=== PATIENT | male | born 1960 | race Caucasian/White ===

== ENCOUNTER 2018-01-17 18:42 | Emergency (ER) | payer OTHER, MEDICARE ==
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
[2018-01-17] MEDS ORDERED: Sodium Chloride 0.9% 1000 ML 1,000 ML ONE (20:26)
[2018-01-17] MEDS ORDERED: Zofran 4 MG/2 ML VIAL ONE (20:26)
[2018-01-17] MEDS ORDERED: Nitrostat 0.4 MG (ED) SL ONE (20:26)
[2018-01-17 20:31] LABS: BASOPHIL % 0.2 % (0.0-0.4); Basophil (Absolute #) 0.01 (0-0.4); Eosinophil % 0.2 % (0.00-5.0); Eosinophil (Absolute #) 0.01 (0-0.5); Granulocyte Absolute (ANC) 2.64 (1.4-6.9); Granulocytes % 53.3 % (36.0-66.0); Hemoglobin 11.2 gm/dl (12.5-18.0); Lymphocyte (Absolute #) 1.78 (1.0-4.6); Mean Corpuscular Hemoglobin 27.5 pg (26-32); Mean Platelet Volume 11.3 fl (6-9.5); Monocyte (Absolute #) 0.51 (0.0-1.3); Monocytes % 10.3 % (0.0-12.0); Platelet Count 178 K/mm3 (150-450); Red Blood Count 4.07 M/mm3 (4.1-5.6); Red Cell Distribution Width 15.5 % (11.5-14.0)
[2018-01-17] MEDS: Nitrostat 0.4 MG (ED) SL ONE (20:42)
[2018-01-17] MEDS: Sodium Chloride 0.9% 1000 ML 1,000 ML IV STA (20:42)
[2018-01-17] MEDS: Zofran 4 MG/2 ML VIAL IV ONE (20:42)
[2018-01-17 21:04] LABS: ALBUMIN 3.4 g/dL (3.5-5.0); ALKALINE PHOSPHATASE 161 U/L (38-126); ANION GAP 9.6 MEQ/L (5-15); BLOOD UREA NITROGEN 10 mg/dL (9-20); CHLORIDE 105 mmol/L (98-107); Calcium 8.2 mg/dL (8.4-10.2); Carbon Dioxide 27 mmol/L (22-30); Creatinine 1 0.52 mg/dL (0.66-1.25); Glucose 93 mg/dL (74-106); NT PRO BNP 168 pg/mL (0-900); Potassium 3.9 mmol/L (3.5-5.1); SGOT/AST 48 U/L (17-59); SGPT/ALT 52 U/L (0-50); SODIUM 138 mmol/L (137-145); Total Protein 6.4 g/dL (6.3-8.2)
[2018-01-17 21:50] VITALS: BP 134/83; PULSE 76
[2018-01-17 22:05] VITALS: O2SAT 97
--- NOTE | 2018-01-18 09:26 | XRAY ---
Indication: Chest pain. Comparison: September 13, 2015. PA/lateral chest demonstrates minimal left base fibrosis/scarring. No focal infiltrate, consolidation, or large effusion. Heart is not enlarged. Bony thorax again demonstrates osteopenia, degenerative changes, and old right clavicle fracture with intact hardware. New finding for multiple old left rib fractures. Impression: Nonacute chest with chronic features.
== END 2018-01-17 22:22 | disposition home or self-care (01) ==
LOC: ED 18:42
DX: M54.2 Cervicalgia (principal); F41.9 Anxiety disorder, unspecified; R20.0 Anesthesia of skin; R11.0 Nausea; R06.02 Shortness of breath
CPT/HCPCS: 36000; 36415; 71046; 80053; 83880; 84484; 85025; 93005; 93041; 96360; 96374; 99284; J2405; A9270-GY

== ENCOUNTER 2018-01-22 16:33 | Emergency (ER) | payer OTHER, MEDICARE ==
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
[2018-01-22] MEDS ORDERED: MORPHINE SULFATE 10 MG/ML IV ONE (18:42)
[2018-01-22] MEDS ORDERED: Sodium Chloride 0.9% 1000 ML 1,000 ML IV STA (18:42)
[2018-01-22] MEDS ORDERED: Zofran 4 MG/2 ML VIAL IV ONE (18:42)
[2018-01-22] MEDS ORDERED: Sodium Chloride 0.9% 1000 ML 1,000 ML ONE (19:25)
[2018-01-22] MEDS ORDERED: MORPHINE SULFATE 10 MG/ML ONE (19:25)
[2018-01-22] MEDS ORDERED: Zofran 4 MG/2 ML VIAL ONE (19:25)
[2018-01-22 19:48] VITALS: BP 143/89; PULSE 86; O2SAT 95
--- NOTE | 2018-01-22 22:12 | XRAY ---
Indication: Pain following fall. Comparison: None Single AP pelvis demonstrates nondisplaced left intertrochanteric fracture. Elsewhere osteopenia, moderate bilateral superior acetabular spurring, mild lower lumbar degenerative spondylosis, and mild scattered vascular calcifications. Comment: Preliminary interpretation was made by [facility]. No critical discrepancy.
--- NOTE | 2018-01-22 22:12 | XRAY ---
Indication: Pain following fall. Comparison: None 2 views of the left hip demonstrates nondisplaced intertrochanteric fracture. Elsewhere osteopenia, moderate superior acetabular spurring, and mild scattered vascular calcifications. Comment: Preliminary interpretation was made by [facility]. No critical discrepancy.
== END 2018-01-22 19:42 | disposition short-term general hospital (02) ==
LOC: ED 16:33
DX: S72.142A Displaced intertrochanteric fracture of left femur, initial encounter for closed fracture (principal); W01.0XXA Fall on same level from slipping, tripping and stumbling without subsequent striking against object, initial encounter; Y93.79 Activity, other specified sports and athletics; Y92.148 Other place in prison as the place of occurrence of the external cause
CPT/HCPCS: 36000; 72170; 73502; 96360; 96374; 96375; 99285; J2270; J2405

== ENCOUNTER 2018-02-05 14:56 | Emergency (ER) | payer MEDICARE ==
[2018-02-05 15:04] VITALS: BP 175/104; PULSE 77; O2SAT 99
[2018-02-05] MEDS ORDERED: NORCO 5/325 MG PO ONE (15:44)
--- NOTE | 2018-02-05 15:52 | ERPHSYRPT ---
- History of Present Illness Time Seen by Provider: 02/05/18 15:46 Source: patient Exam Limitations: no limitations Patient Subjective Stated Complaint: pt in offeder in local half-way. has recent surgery on left hip last week. and today he was being lifted to bed and states he lnded on mattress on floor, now co pian to left hip.pt is to have toe bearing to left leg with a walker Triage Nursing Assessment: pt alert, resp easy, skin w/d/p. has bandage to left hip, no redenss or swelling Physician History: This is a 57-year-old white male with history of recent hip fracture and hip replacement. He arrives with complaint of pain in his left hip. Apparently fell and injured the left hip. Patient with recent ORIF of the left hip. Patient complains of pain in the left hip. Past medical history includes COPD, high blood pressure, RI, GERD, gastric bypass, umbilical hernia, RI with stents, left ankle fracture, right clavicle fracture, left upper extremity fracture. Past surgical history includes cardiac catheter cardiac stents orthopedic surgery, gastric bypass. Social history history of methamphetamine and marijuana use Timing/Duration: today Severity: moderate Associated Symptoms: No nausea, No vomiting, No abdominal pain, No shortness of breath, No heartburn, No diaphoresis, No cough, No chills, No chest pain, No fever, No headaches, No loss of appetite, No malaise, No rash, No syncope, No seizure, No weakness Allergies/Adverse Reactions: atorvastatin [From Lipitor] Allergy (Verified 02/05/18 15:04) gabapentin Allergy (Verified 02/05/18 15:04) Penicillins Allergy (Verified 02/05/18 15:04) Home Medications: Enoxaparin Sodium 75 mg BID 02/05/18 [History] Hydrocodone/Acetaminophen [Hydrocodone-Acetamin 10-325 mg] 1 ea DAILY 02/05/18 [ History] Hx Tetanus, Diphtheria Vaccination/Date Given: Yes Hx Influenza Vaccination/Date Given: No Hx Pneumococcal Vaccination/Date Given: No Immunizations Up to Date: Yes - Review of Systems Constitutional: No Fever, No Chills Eyes: No Symptoms Ears, Nose, & Throat: No Symptoms Respiratory: No Cough, No Dyspnea Cardiac: No Chest Pain, No Edema, No Syncope Abdominal/Gastrointestinal: No Abdominal Pain, No Nausea, No Vomiting, No Diarrhea Genitourinary Symptoms: No Dysuria Musculoskeletal: Other (Patient with pain in his left hip, had re he might want himcent surgery left hip) Skin: No Rash Neurological: No Dizziness, No Focal Weakness, No Sensory Changes Psychological: No Symptoms Endocrine: No Symptoms All Other Systems: Reviewed and Negative - Past Medical History Pertinent Past Medical History: Yes Neurological History: Stroke ENT History: No Pertinent History Cardiac History: Hypertension, Myocardial Infarction (RI) Respiratory History: COPD Endocrine Medical History: No Pertinent History Musculoskeletal History: Other GI Medical History: GERD History: No Pertinent History Psycho-Social History: No Pertinent History Male Reproductive Disorders: No Pertinent History Other Medical History: GASTRIC BYPASS 6 YEARS AGO, UMBILICAL HERNIA SX. RI W/ CARDIAC STENTS PLACED 8-10 YEARS AGO; R LL ANKLE FXS, R CLAVICLE FX AND L UE FX - Past Surgical History Past Surgical History: Yes Neuro Surgical History: No Pertinent History Cardiac: Cardiac Catheterization, Cardiac Stent Gastrointestinal: Other Musculoskeletal: Orthopedic Surgery Other Surgical History: gastric bypass - right shoulder replacement; colonoscopy with poyp removal - Social History Smoking Status: Current every day smoker Exposure to second hand smoke: Yes Drug Use: marijuana, methamphetamines Patient Lives Alone: No - Nursing Vital Signs Nursing Vital Signs: Initial Vital Signs Temperature 97.6 F 02/05/18 14:57 Pulse Rate 77 02/05/18 14:57 Respiratory Rate 16 02/05/18 14:57 Blood Pressure 175/104 02/05/18 14:57 O2 Sat by Pulse Oximetry 99 02/05/18 14:57 Pain Scale Pain Intensity 10 - Physical Exam General Appearance: moderate distress Eye Exam: PERRL/EOMI Ears, Nose, Throat Exam: normal ENT inspection, TMs normal, pharynx normal, moist mucous membranes Neck Exam: normal inspection, non-tender, supple, full range of motion Respiratory Exam: normal breath sounds, lungs clear, No respiratory distress Cardiovascular Exam: regular rate/rhythm, normal heart sounds, normal peripheral pulses Gastrointestinal/Abdomen Exam: soft, normal bowel sounds, No tenderness, No mass Back Exam: normal inspection, normal range of motion, No CVA tenderness, No vertebral tenderness Extremity Exam: other (Left hip tender with palpation, decreased range of motion left hip, olivia in place left hip, no drainage left hip) Neurologic Exam: alert, oriented x 3, cooperative, normal mood/affect, nml cerebellar function, nml station & gait, sensation nml, No motor deficits SpO2 Interpretation: normal (99%) SpO2: 99 Oxygen Delivery: Room Air - Course Nursing assessment & vital signs reviewed: Yes Ordered Tests: Active Orders 24 hr Category Date Time Status HIP UNI (2V) INCL PEL IF DONE Stat Exams 02/05/18 15:07 Taken Medication Summary Discontinued Medications Generic Name Dose Route Start Last Admin Trade Name Freq PRN Reason Stop Dose Admin Hydrocodone Bitart/Acetaminophen 1 tab 02/05/18 15:44 [place] 5/325 Mg PO 02/05/18 15:45 STAT ONE - Progress Progress: improved Progress Note: 02/05/18 15:52 57-year-old white male with recent hip fracture status post ORIF. Patient arrives with complaint of pain in his left hip apparently dropped onto his left hip. Patient apparently is incarcerated today. Patient feels like he cannot be accommodated at the half-way. Patient with x-ray of the left hip and pelvis which shows ORIF of the left hip hardware in place. Patient's wounds left hip Olivia are in place no drainage no erythema. Will have nurse contact she'll Cmdr. patient will need to have orders given to him by his orthopedist continued at the half-way. As far as physical activity and medications - Departure Referrals: HEIDI WHITE [Primary Care Provider] -
[2018-02-05] MEDS ORDERED: NORCO 5/325 MG ONE (15:59)
--- NOTE | 2018-02-05 20:53 | XRAY ---
Indication: Pain. Comparison: January 22, 2018. AP pelvis and 2 views of the left hip demonstrates new gamma nail, intramedullary todd, and distal screw fixating previous intertrochanteric fracture in good apposition/alignment. Cutaneous olivia attest to recent surgery. Stable osteopenia, acetabular spurring, and scattered vascular calcifications.
== END 2018-02-05 16:45 | disposition home or self-care (01) ==
LOC: ED 14:56
DX: M25.552 Pain in left hip (principal); Z96.642 Presence of left artificial hip joint; W17.89XA Other fall from one level to another, initial encounter; Y93.F2 Activity, caregiving, lifting; Y92.143 Cell of prison as the place of occurrence of the external cause
CPT/HCPCS: 73502; 99283; A9270-GY

== ENCOUNTER 2021-09-28 14:05 | Observation (INO) | payer MEDICARE ==
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
[2021-09-28 16:14] LABS: Crystals Unidentified 25-50 /HPF (NEGATIVE); Mucus MANY /HPF (NEGATIVE); RBC 0-2 /HPF (0-2)
[2021-09-28 16:17] LABS: Amphetamine,Urine POSITIVE (NEGATIVE); Barbiturate,Urine NEGATIVE (NEGATIVE); Benzodiazepine,Urine POSITIVE (NEGATIVE); Cocaine,Urine NEGATIVE (NEGATIVE); Methadone,Urine NEGATIVE (NEGATIVE); Opiate,Urine NEGATIVE (NEGATIVE); PCP,Urine NEGATIVE (NEGATIVE); THC,Urine POSITIVE (NEGATIVE)
[2021-09-28 16:18] LABS: Hematocrit 49.4 % (42-50); Hemoglobin 15.9 gm/dl (12.5-18.0); Mean Corpuscular Hgb Concent. 32.2 g/dl (32-36); Platelet Count 60 K/mm3 (150-450); Red Blood Count 5.88 M/mm3 (4.1-5.6); Red Cell Distribution Width 16.5 % (11.5-14.0); White Blood Count 2.5 K/mm3 (4.0-10.5)
[2021-09-28 16:31] LABS: Appearance CLOUDY (CLEAR); Bilirubin SMALL (NEGATIVE); Glucose NEGATIVE (NEGATIVE)
[2021-09-28 16:32] LABS: Dipstick done @ ? MAIN LAB; Ketones NEGATIVE (NEGATIVE); Nitrite NEGATIVE (NEGATIVE); Ph 5.5 (5-6); Protein,Urine Dip 30 (Negative); RBC SMALL Ery/ul (0-5); Specific Gravity >=1.030 (1.005-1.025); Urobilinogen 1 mg/dL (0-1)
[2021-09-28 16:33] LABS: ALBUMIN 3.6 g/dL (3.5-5.0); ALKALINE PHOSPHATASE 100 U/L (38-126); ANION GAP 10.9 MEQ/L (5-15); BLOOD UREA NITROGEN 11 mg/dL (9-20); CHLORIDE 100 mmol/L (98-107); Calcium 7.9 mg/dL (8.4-10.2); Carbon Dioxide 27 mmol/L (22-30); Creatinine 1 0.52 mg/dL (0.66-1.25); EST GLOMERULAR FILTRATION RATE > 60.0 ML/MIN; ETHYL ALCOHOL < 10 mg/dL (0-10); Glucose 105 mg/dL (74-106); Potassium 3.6 mmol/L (3.5-5.1); SGOT/AST 120 U/L (17-59); SGPT/ALT 50 U/L (0-50); SODIUM 134 mmol/L (137-145); Total Protein 6.9 g/dL (6.3-8.2)
[2021-09-28 16:37] LABS: Urine Cultured Indicated? YES
[2021-09-28] MEDS ORDERED: Sodium Chloride 0.9% 1000 ML 1,000 ML IV STA (16:54)
[2021-09-28] MEDS ORDERED: Sodium Chloride 0.9% 1000 ML 1,000 ML ONE (16:57)
[2021-09-28 17:02] LABS: INR 0.97 (0.8-3.0); PROTIME 11.4 SECONDS (9.4-12.5)
[2021-09-28] MEDS ORDERED: TORAdol 30 mg Injection IV ONE (18:04)
[2021-09-28] MEDS ORDERED: TORAdol 30 mg Injection ONE (18:04)
[2021-09-28 18:17] LABS: INFLUENZA A NEGATIVE (NEGATIVE); INFLUENZA B NEGATIVE (NEGATIVE); RESPIRATORY SYNCTIAL VIRUS NEGATIVE (Negative); SARS-CoV-2 Xpert Express NEGATIVE (NEGATIVE)
[2021-09-28] MEDS ORDERED: Hydromorphone 1 mg/ml Injection IV PRN (18:34)
[2021-09-28] MEDS ORDERED: ROCEPHIN 1 Gm-D5w 50 ml Bag** 1 G/50 ML IVPB IV ONE (18:35)
[2021-09-28 19:34] LABS: Lymphocytes 37 % (24-44); Monocyte 13 % (0.0-12.0); Total Cells Counted 100
[2021-09-28 19:35] LABS: ANISOCYTOSIS 1+; Platelet Estimate DECREASED (NORMAL)
[2021-09-28] MEDS: Sodium Chloride 0.9% 1000 ML 1,000 ML IV SCH (19:56)
--- NOTE | 2021-09-28 21:27 | XRAY ---
Indication: General malaise after finding multiple tics. Comparison: January 17, 2018. Portable chest hyperinflated and clear. Heart not enlarged with mildly tortuous descending aorta. Bony thorax intact with mild osteopenia, degenerative changes, old left rib fractures, old right clavicle fracture with fixation plate/screws, and tiny metallic radiopacities overlying right shoulder. Impression: Nonacute hyperinflated chest with chronic features.
[2021-09-29] MEDS: Sodium Chloride 0.9% 1000 ML 1,000 ML IV SCH (05:04)
[2021-09-29 05:31] LABS: Hemoglobin 12.9 gm/dl (12.5-18.0); Mean Cell Volume 83.3 fl (78-100); Mean Corpuscular Hemoglobin 26.9 pg (26-32); Mean Corpuscular Hgb Concent. 32.3 g/dl (32-36); Mean Platelet Volume 12.6 fl (7.5-11.0); Platelet Count 51 K/mm3 (150-450); Red Cell Distribution Width 15.9 % (11.5-14.0); White Blood Count 3.2 K/mm3 (4.0-10.5)
[2021-09-29 05:47] LABS: ALBUMIN 2.8 g/dL (3.5-5.0); ALKALINE PHOSPHATASE 72 U/L (38-126); ANION GAP 13.3 MEQ/L (5-15); BLOOD UREA NITROGEN 13 mg/dL (9-20); CHLORIDE 103 mmol/L (98-107); Calcium 6.9 mg/dL (8.4-10.2); Carbon Dioxide 22 mmol/L (22-30); Creatinine 1 0.53 mg/dL (0.66-1.25); EST GLOMERULAR FILTRATION RATE > 60.0 ML/MIN; Glucose 173 mg/dL (74-106); PREALBUMIN 7.13 mg/dL (17.6-36.0); SGOT/AST 77 U/L (17-59); SGPT/ALT 35 U/L (0-50); SODIUM 135 mmol/L (137-145); Total Protein 5.7 g/dL (6.3-8.2)
[2021-09-29 06:43] LABS: BAND 3 % (0.0-2.0); Lymphocytes 61 % (24-44); Monocyte 10 % (0.0-12.0); Total Cells Counted 100
[2021-09-29 06:44] LABS: Platelet Estimate DECREASED (NORMAL)
[2021-09-29] MEDS ORDERED: K-LYTE 25 MEQ PO ONE (08:00)
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
[2021-09-29] MEDS: Sodium Chloride 0.9% W/ 20 mEq KCl/LITER 1,000 ML IV SCH ×2 (08:22→17:48)
[2021-09-29] MEDS ORDERED: PROTONIX 40 MG IV IV SCH (10:00)
[2021-09-29] MEDS ORDERED: ROCEPHIN 1 Gm-D5w 50 ml Bag** 1 G/50 ML IVPB IV SCH ×2 (10:00→18:00)
[2021-09-29] MEDS ORDERED: ENOXAPARIN SODIUM SQ SCH (10:00)
[2021-09-29 14:05] LABS: BLOOD UREA NITROGEN 14 mg/dL (9-20); CHLORIDE 106 mmol/L (98-107); Calcium 7.1 mg/dL (8.4-10.2); Carbon Dioxide 25 mmol/L (22-30); Creatinine 1 0.56 mg/dL (0.66-1.25); EST GLOMERULAR FILTRATION RATE > 60.0 ML/MIN; Glucose 125 mg/dL (74-106); Potassium 3.9 mmol/L (3.5-5.1); SODIUM 135 mmol/L (137-145)
[2021-09-30] MEDS: Sodium Chloride 0.9% W/ 20 mEq KCl/LITER 1,000 ML IV SCH (04:16)
[2021-09-30 04:48] LABS: Hematocrit 41.4 % (42-50); Hemoglobin 13.3 gm/dl (12.5-18.0); Mean Cell Volume 83.8 fl (78-100); Mean Corpuscular Hemoglobin 26.9 pg (26-32); Mean Corpuscular Hgb Concent. 32.1 g/dl (32-36); Mean Platelet Volume 12.1 fl (7.5-11.0); Platelet Count 65 K/mm3 (150-450); Red Blood Count 4.94 M/mm3 (4.1-5.6); Red Cell Distribution Width 16.3 % (11.5-14.0); White Blood Count 4.5 K/mm3 (4.0-10.5)
[2021-09-30 04:49] VITALS: O2SAT 98
[2021-09-30 05:36] LABS: Lymphocytes 79 % (24-44); Monocyte 4 % (0.0-12.0); Platelet Estimate DECREASED (NORMAL); Total Cells Counted 100
[2021-09-30 05:45] LABS: ANION GAP 9.6 MEQ/L (5-15); BLOOD UREA NITROGEN 13 mg/dL (9-20); CHLORIDE 105 mmol/L (98-107); Calcium 7.2 mg/dL (8.4-10.2); Carbon Dioxide 26 mmol/L (22-30); Creatinine 1 0.45 mg/dL (0.66-1.25); EST GLOMERULAR FILTRATION RATE > 60.0 ML/MIN; Glucose 86 mg/dL (74-106); MAGNESIUM 1.9 mg/dL (1.6-2.3); Potassium 4.1 mmol/L (3.5-5.1); SODIUM 136 mmol/L (137-145)
[2021-09-30 08:35] VITALS: BP 133/79; PULSE 65
--- NOTE | 2021-09-30 09:39 | PCM.DS ---
Discharge Summary Date of Admission: 09/28/21 19:24 Admitting Physician: AMRITA NOLASCO Primary Care Provider: NO FAMILY DOCTOR Allergies Allergies atorvastatin [From Lipitor] Allergy (Verified 09/28/21 19:38) gabapentin Allergy (Verified 09/28/21 19:38) Penicillins Allergy (Verified 09/28/21 19:38) Hospital Summary - Hospital Course Hospital Course: Pt is a 60 yo male with Hep C, and CAD who was admitted through ER with fever and myalgias and treated for UTI with rocephin IV. He has improved and feels good; yesterday was feeling well but his potassium was low so he was kept another day. Potassium wnl today and WBC back to normal (4.5). He will be discharged to home to finish 5d total of antibiotics, although his urine culture did not grow anything. He was asking for viagra or cialis; he had to take twice the dose of viagra for results, so will trial cialis and he really needs to f/u with Dr. Nolasco next week. - Vitals & Intake/Output Vital Signs: Vital Signs Temperature 98.1 F 09/30/21 08:00 Pulse Rate 65 09/30/21 08:00 Respiratory Rate 16 09/30/21 08:00 Blood Pressure 133/79 09/30/21 08:00 O2 Sat by Pulse Oximetry 98 09/30/21 08:00 Intake & Output: Intake & Output 09/27/21 09/28/21 09/29/21 09/30/21 11:59 11:59 11:59 11:59 Intake Total 2341 4405 Output Total 1575 2200 Balance 766 2205 Weight 72.5 kg - Lab Result Diagrams: 09/30/21 04:45 09/30/21 04:45 Lab Results-Last 24 Hrs: Lab Results-Last 24 Hours 09/29/21 09/30/21 09/30/21 Range/Units 13:51 04:45 04:45 WBC 4.5 (4.0-10.5) K/mm3 RBC 4.94 (4.1-5.6) M/mm3 Hgb 13.3 (12.5-18.0) gm/dl Hct 41.4 L (42-50) % MCV 83.8 (78-100) fl MCH 26.9 (26-32) pg MCHC 32.1 (32-36) g/dl RDW 16.3 H (11.5-14.0) % Plt Count 65 L (150-450) K/mm3 MPV 12.1 H (7.5-11.0) fl Segmented Neutrophils 17 L (36.-66.) % Lymphocytes (Manual) 79 H (24-44) % Monocytes (Manual) 4 (0.0-12.0) % Platelet Estimate DECREASED (NORMAL) RBC Morphology NORMAL Sodium 135 L 136 L (137-145) mmol/L Potassium 3.9 D 4.1 (3.5-5.1) mmol/L Chloride 106 105 (98-107) mmol/L Carbon Dioxide 25 26 (22-30) mmol/L Anion Gap 8.0 9.6 (5-15) MEQ/L BUN 14 13 (9-20) mg/dL Creatinine 0.56 L 0.45 L (0.66-1.25) mg/dL Estimated GFR > 60.0 > 60.0 ML/MIN Glucose 125 H 86 (74-106) mg/dL Calcium 7.1 L 7.2 L (8.4-10.2) mg/dL Magnesium 1.9 (1.6-2.3) mg/dL Micro Results-Entire Visit: Microbiology 09/28/21 15:51 Urine Culture - Final Urine, Void MIXED NATHALIE; 3 OR MORE TYPES. NO PREDOMINANT ORGANISM. NO FURTHER WORKUP. PLEASE RESUBMIT IF CLINICALLY INDICATED. 09/28/21 16:30 Blood Culture - Preliminary Blood NO GROWTH TO DATE 09/28/21 15:45 Blood Culture - Preliminary Blood NO GROWTH TO DATE - Radiology Exams Ordered Rad Exams-Entire Visit: Radiology Procedures Category Date Time Status CHEST 1 VIEW (PORTABLE) Stat Exams 09/28/21 15:44 Completed Discharge Exam General Appearance: no apparent distress, alert Neurologic Exam: oriented x 3, cooperative Eye Exam: eyes nml inspection Neck Exam: normal inspection Respiratory Exam: normal breath sounds, lungs clear, No crackles/rales, No rhonchi, No wheezing Cardiovascular Exam: regular rate/rhythm, normal heart sounds, No murmur Gastrointestinal/Abdomen Exam: soft, normal bowel sounds, No tenderness, No distention, No guarding, No rebound Extremity Exam: normal inspection, No pedal edema, No swelling Skin Exam: normal color, warm, dry, No rash Final Diagnosis/Problem List - Final Discharge Diagnosis/Problem (1) UTI (urinary tract infection) Current Visit: Yes Status: Acute Assessment & Plan: Finished 2d of rocephin IV, so will send home on keflex 500mg po QID x 3d. Code(s): N39.0 - URINARY TRACT INFECTION, SITE NOT SPECIFIED (2) Coronary atherosclerosis Current Visit: Yes Status: Chronic Code(s): I25.10 - ATHSCL HEART DISEASE OF [place] CORONARY ARTERY W/O ANG PCTRS (3) Hepatitis C Current Visit: Yes Status: Chronic Assessment & Plan: untreated. Could f/u with GI if he desired treatment. (4) Pancytopenia Current Visit: Yes Status: Resolved Assessment & Plan: WBC nl today. Code(s): D61.818 - OTHER PANCYTOPENIA (5) Impotence Current Visit: Yes Status: Chronic Assessment & Plan: Will trial cialis, f/u with PCP to continue and to complete workup. Code(s): N52.9 - MALE ERECTILE DYSFUNCTION, UNSPECIFIED - Discharge Disposition: Home, Self-Care Condition: Good Prescriptions: New Tadalafil [Cialis] 20 mg PO DAILY PRN #30 tablet PRN Reason: Impotence Cephalexin Mh 500 mg [Keflex 500 mg] 500 mg PO Q6H #12 cap Instructions: Urinary Tract Infection, Adult (DC) Follow up with: AMRITA NOLASCO MD [ACTIVE STAFF] - 10/08/21 10:45 am Forms: Discharge Instructions
== END 2021-09-30 10:03 | disposition home or self-care (01) ==
LOC: ED 14:05 → MED SURG 19:24
PROVIDERS: ADMIT Family Medicine; ATTEND Family Medicine
DX: N39.0 Urinary tract infection, site not specified (principal); I25.10 Atherosclerotic heart disease of native coronary artery without angina pectoris; B19.20 Unspecified viral hepatitis C without hepatic coma; D61.818 Other pancytopenia; N52.9 Male erectile dysfunction, unspecified; E87.6 Hypokalemia; I25.2 Old myocardial infarction; Z20.828 Contact with and (suspected) exposure to other viral communicable diseases; Z72.0 Tobacco use
CPT/HCPCS: 0241U; 36000; 36415; 71045; 80048; 80053; 80307; 81015; 83605; 83735; 84134; 84484; 85025; 85610; 85730; 87040; 87086; 93005; 93268; 96374; 99285; G0378; G0480; J0696; J1885; A9270-GY

== ENCOUNTER 2024-08-30 16:53 | Emergency (ER) | payer MEDICARE ==
[2024-08-30 16:59] VITALS: TEMP 97.8
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
[2024-08-30 18:11] VITALS: RESP 97
[2024-08-30] MEDS ORDERED: MOTRIN 600 MG ONE (18:37)
[2024-08-30] MEDS: MOTRIN 600 MG PO ONE (18:38)
[2024-08-30 19:25] VITALS: BP 171/127; PULSE 84; O2SAT 99
[2024-08-30] MEDS ORDERED: TYLENOL EXTRA STRENGTH 500 MG ONE (19:50)
[2024-08-30] MEDS: TYLENOL EXTRA STRENGTH 500 MG PO ONE (19:50)
--- NOTE | 2024-08-31 08:38 | XRAY ---
Indication: Pain. Comparison: None 3 view left ankle demonstrates widened lateral talotibial articulation concerning for underlying ligamentous tear. MRI may yield further information. Elsewhere osteopenia, small medial malleolus tip heterotopic ossifications, mild talotibial degenerative changes, tiny posterior heel spur, tiny cuboid accessory ossicles, and soft tissue swelling.
== END 2024-08-30 20:00 | disposition home or self-care (01) ==
LOC: ED 16:53
DX: M25.572 Pain in left ankle and joints of left foot (principal); W17.89XA Other fall from one level to another, initial encounter; Y92.007 Garden or yard of unspecified non-institutional (private) residence as the place of occurrence of the external cause; Z79.899 Other long term (current) drug therapy; Z72.0 Tobacco use
CPT/HCPCS: 73610; 99283; A9270-GY